=== PATIENT | male | born 1990 | race Caucasian/White ===

== ENCOUNTER 2018-09-10 08:23 | Emergency (ER) | payer SELFPAY ==
[2018-09-10 08:33] VITALS: BMI 29.5
[2018-09-10 08:34] VITALS: RESP 20; O2SAT 100
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
[2018-09-10 11:58] VITALS: BP 129/69; PULSE 80; TEMP 99
== END 2018-09-10 11:25 | disposition home or self-care (01) ==
LOC: H.ER 08:23
DX: F43.20 Adjustment disorder, unspecified (principal); F17.200 Nicotine dependence, unspecified, uncomplicated